=== PATIENT | female | born 1965 | race Hispanic/Latino ===

== ENCOUNTER 2024-09-24 10:03 | Emergency (ER) | payer BC ==
[~2024-09-24] VITALS: Ht 165.1 cm; Wt 101.6 kg
[2024-09-24 10:05] VITALS: TEMP 97.6
[2024-09-24] MEDS: ondanSETRON 4MG INJ IVP ONE (10:27)
[2024-09-24] MEDS: FAMOTIDINE 20MG VIAL IV ONE (10:27)
[2024-09-24] MEDS: Solu-medROL 125MG VIAL IVP ONE (10:27)
[2024-09-24] MEDS: DiphenhydrAMINE HCL 50 MG/ML VIAL IV ONE (10:27)
[2024-09-24] MEDS: 0.9%NACL 1000ML 1,000 ML IV ONE (10:28)
[2024-09-24] MEDS ORDERED: CLIN-141 PO (12:03)
[2024-09-24] MEDS ORDERED: ONDA-243 PO (12:03)
[2024-09-24] MEDS ORDERED: DIPH-1242 PO (12:03)
[2024-09-24] MEDS ORDERED: FAMO-136 PO (12:03)
[2024-09-24 12:26] VITALS: BP 130/75; PULSE 83; RESP 16; O2SAT 99
== END 2024-09-24 12:34 | disposition home or self-care (01) ==
LOC: EDH 10:03
DX: T78.40XA Allergy, unspecified, initial encounter (principal); K04.7 Periapical abscess without sinus; L50.9 Urticaria, unspecified; E11.9 Type 2 diabetes mellitus without complications; E78.00 Pure hypercholesterolemia, unspecified; X58.XXXA Exposure to other specified factors, initial encounter
CPT/HCPCS: 99284; 96374; 96375 ×2; J1200; J3490; J7030; J2919; J2405